=== PATIENT | male | born 1955 | race Two or more races ===

== ENCOUNTER 2017-11-10 15:30 | Outpatient (CLI) | payer OTHER | END 2017-11-10 15:46 | disposition home or self-care (01) | LOC: MRI 15:30 | DX: M94.262 Chondromalacia, left knee (principal) | CPT/HCPCS: 73721 ==

== ENCOUNTER 2025-05-17 12:45 | Inpatient (IN) | payer OTHER ==
[~2025-05-17] VITALS: Ht 162.6 cm; Wt 124.7 kg
[2025-05-17] MEDS ORDERED: TELMISARTAN-HC1 EAC2 PO (14:31)
[2025-05-17] MEDS ORDERED: AZOR 10-20 MG1 EACH (14:32)
[2025-05-17] MEDS ORDERED: EZALLOR SPRINKL20 MG PO (14:32)
[2025-05-17] MEDS ORDERED: TOPROL XL50 M1 PO (14:32)
[2025-05-17 14:35] VITALS: BP 114/73
[2025-05-23] MEDS ORDERED: VANCOMYCIN HCL 1,000 MG VIAL ONE (07:03)
[2025-05-23] MEDS ORDERED: ISOPROPYL ALCOHOL 30 ML OUNCE TOP ONE (07:03)
[2025-05-23] MEDS ORDERED: POVIDONE-IODINE 118 ML BOTT TOP ONE (07:03)
[2025-05-23] MEDS ORDERED: KETOROLAC TROMETHAMINE 60 MG VIAL IM ONE (07:03)
[2025-05-23] MEDS ORDERED: LIDOCAINE HCL 1%/EPINEPHRINE 20ML VIAL IJ ONE (07:03)
[2025-05-23] MEDS ORDERED: BUPIVACAINE HCL/MPF 0.5% 30ML VIAL ONE (07:03)
[2025-05-23] MEDS ORDERED: TRANEXAMIC ACID 100MG/1ML (1000MG) AMPUL ONE (07:04)
[2025-05-23] MEDS ORDERED: CEFAZOLIN SODIUM 1,000 MG VIAL ONE (07:08)
[2025-05-23] MEDS ORDERED: ONDANSETRON HCL 2 MG/ML VIAL IV PRN (08:30)
[2025-05-23] MEDS ORDERED: OxyCODONE HCL 5 MG TABLET (ROXICODONE) PO SCH (09:00)
[2025-05-23] MEDS ORDERED: ENOXAPARIN SODIUM 30 MG/0.3 ML SYRINGE SUBCUTANEO SCH (09:00)
[2025-05-23] MEDS ORDERED: CEFAZOLIN SODIUM 1,000 MG VIAL IV SCH (12:00)
[2025-05-23] MEDS ORDERED: MORPHINE SULFATE 4 MG/ML CARTRIDGE IV SCH (12:00)
[2025-05-23 17:24] VITALS: BP 165/98; O2SAT 99
[2025-05-23] MEDS ORDERED: ROSUVASTATIN CALCIUM 20 MG TABLET PO SCH (18:49)
[2025-05-23 18:50] VITALS: BP 151/89
[2025-05-23] MEDS ORDERED: ENALAPRILAT DIHYDRATE 1.25 MG/ML VIAL IV PRN (19:00)
[2025-05-23] MEDS ORDERED: ROSUVASTATIN CALCIUM 20 MG TABLET PO NR (20:00)
[2025-05-23] MEDS ORDERED: ORPHENADRINE CITRATE 100 MG TABLET PO SCH (21:00)
[2025-05-23] MEDS ORDERED: GABAPENTIN 100 MG CAPSULE PO SCH (21:00)
[2025-05-24 01:36] VITALS: BP 147/83; O2SAT 95
[2025-05-24 06:15] LABS: BASO % 0.2 % (0.1-1.2); EOS # 0.00 (0.04-0.54); EOS % 0.0 % (0.7-7.0); LYMPH # 0.90 (1.18-3.74); LYMPH % 8.5 % (19.3-53.1); MEAN PLATELET VOLUME 10.30 fl (9.4-12.4); MONO # 1.16 (0.24-0.82); MONO % 10.9 % (4.7-12.5); NEUT # 8.49 (1.56-6.13); NEUT % 80.0 % (34.0-71.1); RED CELL DISTRIBUTION WIDTH 13.7 % (11.6-14.4)
[2025-05-24] MEDS ORDERED: METOPROLOL SUCCINATE 50 MG TAB.SR.24H PO SCH (09:00)
[2025-05-24] MEDS ORDERED: AMLODIPINE BESYLATE 10 MG TABLET PO SCH (09:00)
[2025-05-24] MEDS ORDERED: PATIENTS OWN MEDICATION (MEDICAMENTO EN PISO) PO SCH (09:00)
[2025-05-24 09:18] VITALS: BP 148/70; O2SAT 94
[2025-05-24 11:31] LABS: COVID-19 AG NEGATIVE (NEGATIVE)
[2025-05-24 11:43] LABS: BUN CREA RATIO 26.0 (7.0-25.0); CREATININE SERUM 0.81 mg/dL (0.70-1.30); GFR 94.76; OSMOLALITY SERUM 286.0 MOSM/KG (275-295)
[2025-05-24 11:44] LABS: GLUCOSE FASTING 202.0 mg/dL (65-100)
[2025-05-24] MEDS ORDERED: Cyanocobalamin/Mecobalamin 1 TAB.SL SL NR (12:30)
[2025-05-24] MEDS ORDERED: IRON FUM,PS/FOLIC ACID/VITC/B3 1 CAP CAPSULE PO NR (12:30)
[2025-05-24 15:50] VITALS: BP 128/56; O2SAT 95
[2025-05-24] MEDS ORDERED: ROSUVASTATIN CALCIUM 20 MG TABLET PO SCH (17:00)
[2025-05-24] MEDS ORDERED: FAMOTIDINE/PF 20 MG/2 ML VIAL IV PUSH SCH (17:20)
[2025-05-25 01:59] VITALS: BP 125/70; O2SAT 95
[2025-05-25 08:37] LABS: BASO % 0.2 % (0.1-1.2); EOS # 0.00 (0.04-0.54); EOS % 0.0 % (0.7-7.0); LYMPH # 1.07 (1.18-3.74); LYMPH % 6.7 % (19.3-53.1); MEAN PLATELET VOLUME 10.30 fl (9.4-12.4); MONO # 1.16 (0.24-0.82); MONO % 7.3 % (4.7-12.5); NEUT # 13.63 (1.56-6.13); NEUT % 85.4 % (34.0-71.1); RED CELL DISTRIBUTION WIDTH 13.8 % (11.6-14.4)
[2025-05-25 09:00] VITALS: BP 142/79; O2SAT 85
[2025-05-25] MEDS ORDERED: IRON FUM,PS/FOLIC ACID/VITC/B3 1 CAP CAPSULE PO SCH (09:00)
[2025-05-25] MEDS ORDERED: Cyanocobalamin/Mecobalamin 1 TAB.SL SL SCH (09:00)
[2025-05-25 16:00] VITALS: BP 127/64; O2SAT 92
[2025-05-26 00:57] VITALS: BP 109/58; O2SAT 95
[2025-05-26 06:48] LABS: BASO % 0.4 % (0.1-1.2); EOS # 0.07 (0.04-0.54); EOS % 0.8 % (0.7-7.0); LYMPH # 1.04 (1.18-3.74); LYMPH % 11.3 % (19.3-53.1); MEAN PLATELET VOLUME 10.70 fl (9.4-12.4); MONO # 0.91 (0.24-0.82); MONO % 9.9 % (4.7-12.5); NEUT # 7.10 (1.56-6.13); NEUT % 76.9 % (34.0-71.1); RED CELL DISTRIBUTION WIDTH 14.0 % (11.6-14.4)
[2025-05-26 09:08] VITALS: BP 108/71; O2SAT 97
[2025-05-26 14:30] VITALS: BP 110/69; O2SAT 98
[2025-05-26] MEDS ORDERED: RIVAROXABAN 15 MG TABLET PO SCH (17:00)
[2025-05-26 17:37] VITALS: BP 114/69; O2SAT 96
[2025-05-26] MEDS ORDERED: LEVALBUTEROL HCL 0.63 MG/3 ML SOLUTION IH SCH (18:00)
[2025-05-27 00:34] VITALS: BP 107/68; O2SAT 97
[2025-05-27 07:30] VITALS: BP 115/72; O2SAT 97
[2025-05-27 16:00] VITALS: BP 137/78; O2SAT 98
[2025-05-27] MEDS ORDERED: POLYETHYLENE GLYCOL 3350 17 GM BLIST.PACK PO SCH (17:00)
[2025-05-27] MEDS ORDERED: DOCUSATE SODIUM 100MG CAP PO SCH (21:00)
[2025-05-28 07:30] VITALS: BP 118/72; O2SAT 98
[2025-05-28 08:11] LABS: ALT/SGPT 58.0 U/L (12-78); AST/SGOT 42.0 U/L (15-37); BILIRUBIN TOTAL 0.82 mg/dL (0.3-1.2); BUN CREA RATIO 35.0 (7.0-25.0); CREATININE SERUM 0.77 mg/dL (0.70-1.30); GFR 100.47; GLOBULINA 2.8 G/DL (2.4-3.5); GLUCOSE FASTING 123.0 mg/dL (65-100); OSMOLALITY SERUM 293.0 MOSM/KG (275-295)
[2025-05-28 08:14] LABS: BASO % 0.4 % (0.1-1.2); EOS # 0.62 (0.04-0.54); EOS % 8.0 % (0.7-7.0); LYMPH # 1.64 (1.18-3.74); LYMPH % 21.1 % (19.3-53.1); MEAN PLATELET VOLUME 10.40 fl (9.4-12.4); MONO # 1.07 (0.24-0.82); NEUT # 4.39 (1.56-6.13); NEUT % 56.3 % (34.0-71.1); RED CELL DISTRIBUTION WIDTH 14.2 % (11.6-14.4)
[2025-05-28 08:22] LABS: MONO % 13.7 % (4.7-12.5)
[2025-05-28 16:00] VITALS: BP 143/50; O2SAT 99
[2025-05-29 00:30] VITALS: BP 121/71; O2SAT 97
[2025-05-29] MEDS ORDERED: NORFLEX100MG PO (08:21)
[2025-05-29] MEDS ORDERED: XARELTO15 MG PO (08:23)
[2025-05-29] MEDS ORDERED: GABAPENTIN100 MG PO (08:24)
[2025-05-29] MEDS ORDERED: XARELTO20 MG PO (08:24)
[2025-05-29 09:17] VITALS: BP 149/85; O2SAT 99
[2025-06-17] MEDS ORDERED: RIVAROXABAN 20 MG TABLET PO SCH (17:00)
== END 2025-05-29 15:05 | DRG 470 ==
LOC: SURG 05-23 06:00 → O/R 05-23 06:00 → SURH 05-23 07:00 → SURG 05-23 13:36
PROVIDERS: Internal Medicine; ADMIT Orthopaedic Surgery; ATTEND Orthopaedic Surgery
PROC: 0SRC0JZ Replacement of Right Knee Joint with Synthetic Substitute, Open Approach (ICD-10-PCS; principal; 2025-05-23 07:00)
PROC: BB24YZZ Computerized Tomography (CT Scan) of Bilateral Lungs using Other Contrast (ICD-10-PCS; 2025-05-25)
PROC: B54DZZZ Ultrasonography of Bilateral Lower Extremity Veins (ICD-10-PCS; 2025-05-26)
PROC: 3E0F7GC Introduction of Other Therapeutic Substance into Respiratory Tract, Via Natural or Artificial Opening (ICD-10-PCS; 2025-05-26)
DX: M17.11 Unilateral primary osteoarthritis, right knee (principal); D62 Acute posthemorrhagic anemia; I10 Essential (primary) hypertension; M85.661 Other cyst of bone, right lower leg; G89.18 Other acute postprocedural pain; G47.33 Obstructive sleep apnea (adult) (pediatric); E78.49 Other hyperlipidemia; E66.01 Morbid (severe) obesity due to excess calories; R09.02 Hypoxemia